=== PATIENT | male | born 1965 | race Caucasian/White ===

== ENCOUNTER 2017-01-24 18:07 | Day surgery (SDC) | payer MEDICARE, OTHER ==
[2017-01-24] MEDS ORDERED: IOPAMIDOL 370 (76%) 100 ML VIAL IV ONE (18:08)
[2017-01-24] MEDS ORDERED: SODIUM CHLORIDE 0.9% 1,000 ML ONE (22:38)
[2017-01-24 22:40] LABS: ABSOLUTE NEUTROPHIL COUNT 24.3 K/mm3 (1.8-7.7); BASO # 0.1 K/mm3 (0.0-0.2); BASO % 0.3 % (0.2-1.0); HEMATOCRIT 50.6 % (32.0-52.0); HEMOGLOBIN 16.7 gm/l (14.0-18.0); IMM NEUT # 0.2 K/mm3 (0-0.2); IMM NEUT% 0.9 % (0-1); LYMPH % 3.5 % (15-45); MEAN CELL VOLUME 90.7 fl (80.0-94.0); MEAN CORPUSCULAR HEMOGLOBIN 29.9 pg (27.0-31.0); MEAN PLATELET VOLUME 9.7 fl (7.4-10.4); MONO # 1.6 (0.0-0.8); MONO % 5.8 % (4-12); NEUT % 89.5 % (43-75); PLATELET COUNT 236 K/mm3 (130-400); RED CELL DISTRIBUTION WIDTH 13.5 % (11.5-14.5)
[2017-01-24 22:48] LABS: INR 1.09; PROTHROMBIN TIME 11.4 SECONDS (9.3-11.4)
[2017-01-24] MEDS ORDERED: PIPERACILLIN-TAZO PREMIX BAG 50 ML IV ONE (23:15)
[2017-01-24] MEDS ORDERED: KETAMINE HCL 50 MG/1 ML 10ML VIAL ONE (23:15)
[2017-01-24 23:29] LABS: ALB/GLOB RATIO 1.3 (>1.0); ALBUMIN 4.4 gm/dL (3.5-5.7); CALCIUM 10.9 mg/dL (8.6-10.3)
[2017-01-24 23:31] LABS: BAND 6 % (0-10); BASOPHIL 0 % (0-1); EOSINOPHIL 0 % (1-3); LYMPHOCYTE 4 % (15-45); MONOCYTE 5 % (4-12); NEUTROPHILS 85 % (43-75); PLATELET ESTIMATE NORMAL (NORMAL); TOTAL CELLS COUNTED 100
[2017-01-24 23:37] LABS: URINE APPEARANCE CLEAR; URINE BILIRUBIN NEGATIVE (NEGATIVE); URINE BLOOD NEGATIVE (NEGATIVE); URINE COLOR YELLOW; URINE GLUCOSE (UA) NEGATIVE (NEGATIVE); URINE LEUKOCYTE ESTERASE TRACE (NEGATIVE); URINE NITRITE NEGATIVE (NEGATIVE); URINE PROTEIN NEGATIVE (NEGATIVE); URINE UROBILINOGEN NORMAL (0-1 mg/dl)
[2017-01-24 23:47] LABS: URINE BACTERIA 0; URINE EPITHELIAL CELLS 0-2 /hpf; URINE RBC 0-2 /hpf
[2017-01-25] MEDS ORDERED: FENTANYL 250 MCG/5 ML AMP ONE (01:05)
[2017-01-25] MEDS ORDERED: MIDAZOLAM HCL 1 MG/ML 2ML VIAL ONE (01:05)
[2017-01-25] MEDS ORDERED: BUPIVACAINE 0.5% (PRES FREE) 30 ML VIAL ONE (01:11)
[2017-01-25] MEDS ORDERED: LIDOCAINE 1%/EPI 1:100,000 (MULTI DOSE) 30 ML VIAL ONE (01:11)
[2017-01-25] MEDS ORDERED: EPHEDRINE SULFATE 50 MG/ML 1ML VIAL ONE (01:41)
[2017-01-25] MEDS ORDERED: SUCCINYLCHOLINE CHL 20 MG/ML DOSE ONE (01:42)
[2017-01-25] MEDS ORDERED: PROPOFOL 20 ML IV ONE (01:42)
[2017-01-25] MEDS ORDERED: ROCURONIUM BROMIDE 10 MG/ML DOSE IV ONE (01:42)
[2017-01-25] MEDS ORDERED: LIDOCAINE 2% (MULTI DOSE) 10 ML VIAL ONE (01:42)
[2017-01-25] MEDS ORDERED: ONDANSETRON 4 MG/2ML 2 ML VIAL ONE (01:58)
[2017-01-25] MEDS ORDERED: LACTATED RINGERS 1,000 ML IV SCH (02:00)
[2017-01-25] MEDS ORDERED: FENTANYL 100 MCG/2 ML VIAL IV PRN (02:00)
[2017-01-25] MEDS ORDERED: ONDANSETRON 4 MG/2ML 2 ML VIAL IV PRN ×2 (02:00→02:55)
[2017-01-25] MEDS ORDERED: MEPERIDINE 25 MG/ML SYRINGE IV PRN (02:00)
[2017-01-25] MEDS ORDERED: ATROPINE SULFATE 0.4 MG/1 ML VIAL IV PRN (02:00)
[2017-01-25] MEDS ORDERED: HYDROMORPHONE HCL 1 MG/ML SYRINGE IV PRN ×2 (02:00→02:55)
[2017-01-25] MEDS ORDERED: NALOXONE HCL 0.4 MG/ML VIAL IV PRN (02:00)
[2017-01-25] MEDS ORDERED: NEOSTIGMINE METHYLSULFATE 1 MG/ML DOSE ONE (02:05)
[2017-01-25] MEDS ORDERED: GLYCOPYRROLATE 0.2 MG/ML 1ML VIAL ONE (02:05)
[2017-01-25] MEDS ORDERED: EtCO2 Monitoring Set ONE (02:14)
[2017-01-25] MEDS ORDERED: HYDROMORPHONE HCL 2 MG/ML SYRINGE ONE (02:25)
--- NOTE | 2017-01-25 02:50 | PCMON ---
Date of Procedure: 01/25/17 Start Time: 2:00 am PREOPERATIVE DIAGNOSIS Acute appendicitis. POSTOPERATIVE DIAGNOSIS Acute appendicitis with perforation. PROCEDURE PERFORMED Laparoscopic appendectomy. COMPLICATIONS None. OPERATIVE FINDINGS Acute appendicitis with localized perforation and villa-appendiceal fluid ESTIMATED BLOOD LOSS 30 ml BRIEF INDICATIONS AARON PALOMARES is a 51 year old M patient that was admitted with symptoms of acute appendicitis. The preoperative CBC revealed a elevated WBC, physical examination demonstrated RLQ abdominal tenderness, and CT scan supported the diagnosis of acute appendicitis. Risks and benefits of surgery were explained to the patient, including the risk of bowel resection, stoma creation and the possible need for conversion to open technique. The patient declined the possible alternatives and agreed to proceed with surgery, providing informed consent. DESCRIPTION OF PROCEDURE The patient was brought to the operating room and placed supine on the operating room table. A surgical briefing was held to verify the correct patient and correct procedure. A general anesthetic was induced uneventfully, followed by the administration of a subcutaneous heparin injection and perioperative antibiotics. Pneumatic compression stockings were placed on the legs and powered on. A Love catheter was placed to closed gravity drainage. The abdomen was prepped and draped in a sterile fashion. A 5-mm direct optical view trocar was used to enter the left lower quadrant under direct vision of the abdominal wall layers. Once inside the abdominal cavity, a pneumoperitoneum was created. No injury to underlying structures occurred with placement of this trocar. Once inside the abdominal cavity, an additional 12-mm port was placed periumbilically in the midline. An additional 5-mm port was placed in the midline just above the pubis. All trocars were placed under direct visualization. There was no injury to underlying structures with placement of these trocars. The patient was placed in Trendelenburg position with the right side up. The appendix was visualized at the base of the cecum. The appendix was mobilized allowing identification of the mesoappendix and the base of the appendix. The cecum was not involved by the appendiceal inflammation. A window was created at the base between the appendix and the mesoappendix, and the appendix was then amputated at its base with a blue load Endo JAVIER stapler. The mesentery of the appendix was then divided with a vascular load of the Endo JAVIER stapler. The appendix was then removed through the 12-mm midline port using an Endocatch bag. The staple lines were evaluated for hemostasis; no hemorrhage was identified. The RLQ was irrigated with warm saline. The left lower quadrant and suprapubic ports were removed under direct laparoscopic vision, and the incisions were hemostatic. The pneumoperitoneum was then evacuated. The fascia of the 12-mm port was closed with 0 Vicryl. All of the ports and instruments were removed. The skin was closed with 4-0 absorbable subcuticular sutures. Steri-Strips were placed over the incisions and sterile dressings applied. The needle and sponge counts were correct x2 at the completion of the procedure. The patient had no apparent intraoperative complication identified.
[2017-01-25] MEDS ORDERED: D5 1/2NS with 20 mEq KCL 1,000 ML IV SCH (02:55)
[2017-01-25] MEDS ORDERED: ACETAMINOPHEN 325 MG TABLET PO PRN (02:55)
[2017-01-25] MEDS ORDERED: PIPERACILLIN-TAZO PREMIX BAG 3.375 G in Premix (D5W) 50 ml 1 EACH IV SCH (02:55)
[2017-01-25] MEDS ORDERED: BLISTEX LIPSTICK 1 EACH TP PRN (02:55)
[2017-01-25] MEDS ORDERED: SODIUM CHLORIDE 0.9% 1,000 ML IV ONE (02:55)
[2017-01-25] MEDS ORDERED: Heparin Sodium 5000 unit/0.5ml syringe SUB-Q SCH (02:55)
[2017-01-25] MEDS ORDERED: MENTHOL/CETYLPYRD 1 EACH LOZENGE PO PRN (02:55)
[2017-01-25] MEDS ORDERED: PUMP TUBING ONE (03:05)
[2017-01-25 03:46] VITALS: BMI 18.2
[2017-01-25] MEDS: D5 1/2NS with 20 mEq KCL 1,000 ML IV SCH ×2 (04:09→15:12)
[2017-01-25] MEDS ORDERED: PIPERACILLIN-TAZO PREMIX BAG 50 ML IV ONE (05:09)
[2017-01-25] MEDS: PIPERACILLIN-TAZO PREMIX BAG 3.375 G in Premix (D5W) 50 ml 1 EACH IV SCH ×4 (05:27→23:42)
[2017-01-25] MEDS: LITHIUM CARBONATE 300 MG CAPSULE PO SCH ×2 (08:17→20:07)
[2017-01-25] MEDS: GEMFIBROZIL 600 MG TABLET PO SCH ×2 (08:17→16:38)
[2017-01-25] MEDS: SERTRALINE HCL 50 MG TABLET PO SCH (08:17)
[2017-01-25] MEDS: FAMOTIDINE 10 MG/ML 2ML VIAL IV SCH ×2 (08:18→20:08)
[2017-01-25] MEDS: Heparin Sodium 5000 unit/0.5ml syringe SUB-Q SCH ×2 (08:18→16:42)
--- NOTE | 2017-01-25 08:21 | CT ---
EXAMINATION: Contrast enhanced CT scans of the chest, abdomen and pelvis. CLINICAL INDICATION: Nausea and vomiting last 24 hours. COMPARISON: None TECHNIQUE: Oral contrast: None Following uneventful administration of 100 mL of Isovue 370, intravenously axial images were acquired from just above lung apices to the lung bases. A CT scan of the abdomen was acquired from the domes of the diaphragm to the iliac crest. A CT scan of the pelvis was also obtained from the iliac crest to the initial tuberosities. Stacked axial, sagittal, and coronal images were reviewed. Findings: Chest CT:(Contrast-enhanced) Several images are degraded due to motion artifact. This can diminish resolution. There is a stellate 1 cm groundglass lesion within the lateral aspect of the right upper lobe. This closely of biceps some pleural scarring. There is basilar atelectasis as well. A stellate soft tissue density is noted within the right cardiophrenic sulcus also approximately 1 cm in size. There is an apparent 4 mm nodule in the left lower lobe and the basilar segment please note motion artifact degrades many images. If warranted a repeat chest CT scan may need to be considered. There is no pleural effusion. No pleural plaques or significant irregularities are identified. The thoracic inlet is within normal limits. There is no mediastinal adenopathy. The heart size is normal. There is no pericardial effusion. There are mild atherosclerotic changes of the thoracic aorta. There is no aneurysmal dilatation or evidence of dissection. The pulmonary arteries are well opacified the proximal aspect. There is moderate lower thoracic dextroscoliosis. Multilevel spondylosis changes are also noted. No gross osteolytic or blastic lesions are identified. The esophagus is markedly thickened. This may reflect chronic esophagitis changes. Abdomen CT: (Contrast-enhanced): The liver is unremarkable. The gallbladder is moderately distended. There is no adjacent inflammatory stranding. Common bile duct is not dilated. There is borderline splenomegaly. It approximates 13 cm in long axis dimension. There is a low-attenuation lesion in the posterior superior aspect which may reflect a hemangioma. It measures approximate 1.3 cm in size. In the anterior inferior aspect there is also a low-attenuation lesion also suspicious for hemangioma or cyst approximates 7 mm in size. The pancreas is normal in size and contours. No inflammatory stranding is identified. The pancreatic duct is unremarkable. The adrenals are unremarkable. The kidneys are without solid mass or hydronephrosis. There is no gross nephrolithiasis. There is an 8 mm upper pole left renal cyst. Smaller cortical cysts are suggested as well. There is after chronic plaquing of the abdominal aorta with no aneurysm or dissection. There is no adjacent lymphadenopathy. In the upper abdomen the stomach and small bowels within normal limits. No large bowel abnormalities are seen. There is no free air. Scoliosis is noted. No gross osteolytic or blastic changes are identified. Pelvic CT: (Contrast -enhanced): The distal ureters and bladder are unremarkable. The prostate is normal in size. No adenopathy is identified. The distal abdominal aorta and iliac vessels are within normal limits. The visualized segments of small and large bowel are within normal limits. The appendix is markedly distended and exhibits inflammatory changes. There is an appendicolith at the base. Pockets of gas are noted centrally within the appendiceal lumen and there is peripheral enhancement. Transverse dimension approximates 1.4 cm. Currently at the time of this examination there is no evidence of perforation or abscess. Scoliosis is noted. The overlying soft tissues are unremarkable. IMPRESSION: 1. Appendicitis. The appendix is markedly distended and inflamed. Currently there is no evidence of perforation or abscess. 2. Stellate 1 cm lesion within the right upper lobe with adjacent scarring. There is also a 1 cm lesion within the right cardiophrenic sulcus may reflect scarring as well. Please note due to motion artifact does limit resolution. A repeat CT scan may be warranted in this instance. 3. Moderate esophageal mucosal thickening. Findings raise a question of esophagitis. Endoscopy may be warranted. 4. Borderline splenomegaly. There are lesions within the spleen as described above. Currently these do not appear aggressive. 5. Moderate distention of the gallbladder with no adjacent inflammatory change. 6. Atherosclerosis. 7. Renal cysts. 8. Scoliosis. Findings were communicated by [facility] to the emergency department at: 12:05 AM 01/25/2017
--- NOTE | 2017-01-25 09:24 | HP ---
AARON JEAN-BAPTISTE DATE OF ADMISSION: January 25, 2017 HISTORY OF PRESENT ILLNESS: Mr. Jean-Baptiste is a 51-year-old male with a significant past medical history for neurological disease, developmental delay. Other past medical history includes hyperlipidemia, autism, cerebral palsy, pulmonary disease and chronic bronchitis. Mr. Jean-Baptiste presents this evening with his caregiver to [facility]. Unfortunately, the caregiver accompanying Mr. Jean-Baptiste today was not his regular it support consultant and had minimal past medical history for our initial discussion. With some difficulty, I was able to obtain a history which sounds like over the last 24 hours, Mr. Jean-Baptiste had increasing right lower quadrant abdominal pain although this was difficult to confirm. He had recently received ketamine prior to proceeding to the CT scanner, so even physical exam was difficult at this time. PHYSICAL EXAMINATION: On physical examination, Mr. Jean-Baptiste is his stated age. He appears to be autistic with developmental delay. He is sedated at this point. His abdomen is soft. He does appear to have a fullness in the right lower quadrant as well as abdominal tenderness to deep palpations. His lungs are clear bilaterally with normal heart sounds. LABS: On laboratory evaluation, he has a white count of 27.2 with a significant left shift. Remaining coagulation and chemistries are within relatively normal range. DIAGNOSTIC IMAGING: The CAT scan reveals a tubular structure in the right lower quadrant extending to the mid abdomen. It appears to have a fecalith with thickened appendiceal wall as well as densely inflamed small bowel in the region around the appendix. I questioned whether or not Mr. Jean-Baptiste had a perforated appendix on his imaging, and I am suspicious that his abdominal pain has been ongoing for longer than 24 hours. ASSESSMENT AND PLAN: Based on the findings of right lower quadrant abdominal pain, the elevation of white count, and the CT scan concerning for acute possibly perforated appendicitis, I recommended laparoscopic appendectomy. Due to Mr. Jean-Baptiste's standard medical state and his inability to give consent, I discussed this with the caregiver. The caregiver understood the risks and benefits of the surgery and discussed this with her supervising AI. Due to the fact that this was an emergency procedure, Dr. Mejia from the emergency department and myself performed a two physician consent for proceeding to the operating room for laparoscopic appendectomy.
[2017-01-25] MEDS: HYDROMORPHONE HCL 0.5 MG/0.5 ML SYRINGE IV PRN (12:14)
[2017-01-25] MEDS: LOVASTATIN 20 MG TABLET PO SCH (20:07)
[2017-01-25] MEDS: OLANZAPINE 5 MG TABLET PO SCH (20:08)
[2017-01-26] MEDS: Heparin Sodium 5000 unit/0.5ml syringe SUB-Q SCH ×3 (01:33→16:58)
[2017-01-26] MEDS: D5 1/2NS with 20 mEq KCL 1,000 ML IV SCH ×3 (02:00→20:30)
[2017-01-26] MEDS: HYDROMORPHONE HCL 0.5 MG/0.5 ML SYRINGE IV PRN (02:00)
[2017-01-26] MEDS: PIPERACILLIN-TAZO PREMIX BAG 3.375 G in Premix (D5W) 50 ml 1 EACH IV SCH (06:06)
[2017-01-26 06:18] LABS: ABSOLUTE NEUTROPHIL COUNT 10.8 K/mm3 (1.8-7.7); BASO # 0.1 K/mm3 (0.0-0.2); BASO % 0.4 % (0.2-1.0); EOS % 0.3 % (0.9-2.9); HEMATOCRIT 37.9 % (32.0-52.0); IMM NEUT # 0.1 K/mm3 (0-0.2); IMM NEUT% 0.4 % (0-1); LYMPH % 7.8 % (15-45); MEAN CELL VOLUME 93.3 fl (80.0-94.0); MEAN CORPUSCULAR HEMOGLOBIN 29.6 pg (27.0-31.0); MEAN CORPUSCULAR HGB CONC 31.7 g/dl (33.0-37.0); MEAN PLATELET VOLUME 9.5 fl (7.4-10.4); MONO # 0.8 (0.0-0.8); MONO % 6.4 % (4-12); NEUT % 84.7 % (43-75); PLATELET COUNT 172 K/mm3 (130-400); RED CELL DISTRIBUTION WIDTH 13.4 % (11.5-14.5)
[2017-01-26 06:24] LABS: ALB/GLOB RATIO 1.1 (>1.0); ALBUMIN 3.1 gm/dL (3.5-5.7); CALCIUM 8.6 mg/dL (8.6-10.3)
[2017-01-26] MEDS: GEMFIBROZIL 600 MG TABLET PO SCH ×2 (07:36→16:58)
[2017-01-26] MEDS: LITHIUM CARBONATE 300 MG CAPSULE PO SCH ×2 (09:01→20:15)
[2017-01-26] MEDS: FAMOTIDINE 10 MG/ML 2ML VIAL IV SCH ×2 (09:01→20:15)
[2017-01-26] MEDS: SERTRALINE HCL 50 MG TABLET PO SCH (09:02)
[2017-01-26] MEDS: OXYCODONE HCL 5 MG TABLET PO PRN ×3 (09:14→20:34)
[2017-01-26] MEDS: OLANZAPINE 5 MG TABLET PO SCH (20:15)
[2017-01-26] MEDS: LOVASTATIN 20 MG TABLET PO SCH (20:15)
[2017-01-26] MEDS: AMOX 875 MG/CLAV 125 MG 1 EACH TABLET PO SCH (20:15)
[2017-01-26] MEDS: KETOROLAC TROMETHAMINE 30 MG/ML 1 ML VIAL IV PRN (20:30)
[2017-01-27] MEDS: Heparin Sodium 5000 unit/0.5ml syringe SUB-Q SCH ×2 (01:13→09:27)
[2017-01-27] MEDS: KETOROLAC TROMETHAMINE 30 MG/ML 1 ML VIAL IV PRN (02:22)
[2017-01-27 07:49] VITALS: BP 109/57
[2017-01-27] MEDS: D5 1/2NS with 20 mEq KCL 1,000 ML IV SCH (07:54)
[2017-01-27] MEDS: GEMFIBROZIL 600 MG TABLET PO SCH (07:54)
[2017-01-27] MEDS: FAMOTIDINE 10 MG/ML 2ML VIAL IV SCH (09:27)
[2017-01-27] MEDS ORDERED: OPIUM/BELLADONNA ALKALOIDS 1 EACH SUP PR ONE (09:33)
[2017-01-27] MEDS: AMOX 875 MG/CLAV 125 MG 1 EACH TABLET PO SCH (09:36)
[2017-01-27] MEDS: SERTRALINE HCL 50 MG TABLET PO SCH (09:36)
[2017-01-27] MEDS: LITHIUM CARBONATE 300 MG CAPSULE PO SCH (09:36)
[2017-01-27] MEDS ORDERED: BISACODYL 10 MG SUP PR ONE (10:26)
[2017-01-27 10:37] LABS: ABSOLUTE NEUTROPHIL COUNT 6.9 K/mm3 (1.8-7.7); BASO % 0.5 % (0.2-1.0); EOS # 0.2 (0.0-0.5); EOS % 2.2 % (0.9-2.9); HEMATOCRIT 41.8 % (32.0-52.0); HEMOGLOBIN 13.5 gm/l (14.0-18.0); IMM NEUT% 0.4 % (0-1); LYMPH # 0.6 (1.0-4.8); LYMPH % 7.3 % (15-45); MEAN CELL VOLUME 92.1 fl (80.0-94.0); MEAN CORPUSCULAR HEMOGLOBIN 29.7 pg (27.0-31.0); MEAN CORPUSCULAR HGB CONC 32.3 g/dl (33.0-37.0); MEAN PLATELET VOLUME 9.3 fl (7.4-10.4); MONO # 0.6 (0.0-0.8); MONO % 6.8 % (4-12); NEUT % 82.8 % (43-75); PLATELET COUNT 188 K/mm3 (130-400); RED CELL DISTRIBUTION WIDTH 13.2 % (11.5-14.5)
--- NOTE | 2017-01-27 12:03 | SURGPATH ---
[facility] [address] [place] [id number] Patient Name: AARON PALOMRAES MR#: [id number] : 1965 Gender: M Specimen #: [id number] Collected: 01/25/2017 Received: 01/26/2017 Reported: 01/27/2017 Submitting Phys: MIGUEL ANGEL MANDEL Copy To Phys: BJ PENDLETON [facility] Clinical History / Pre-Operative Diagnosis: Acute appendicitis Specimen Source / Surgical Procedure Performed: Appendix Interpretation: APPENDIX, APPENDECTOMY: - ACUTE APPENDICITIS Electronically Signed Out Dottie Dale M.D. Gross Description: The specimen is received in formalin labeled with the patient's name and "appendix". The specimen consists of an 8.0 x 1.2 x 1.2 cm vermiform appendix with attached mesoappendix. The serosa is dusky and dull with exudate. The mucosa is hemorrhagic or necrotic. A distinct perforation or obstruction is difficult to identify. 1A kiosk sales representative, base and tip RASHAUN Padilla Microscopic Description: Sections show an ulcerated appendix with transmural acute inflammation. 1: [id number] K35.80
[2017-01-27] MEDS: OXYCODONE HCL 5 MG TABLET PO PRN (12:37)
== END 2017-01-27 12:42 | disposition home or self-care (01) ==
LOC: ED 18:07 → SDC 01-25 00:05 → MS 01-25 04:55 → SDC 01-27 12:42
PROVIDERS: ATTEND Surgery
PROC: 0DTJ4ZZ Resection of Appendix, Percutaneous Endoscopic Approach (ICD-10-PCS; principal; 2017-01-24)
DX: K35.3 Acute appendicitis with localized peritonitis (principal); E78.5 Hyperlipidemia, unspecified; G80.9 Cerebral palsy, unspecified; J42 Unspecified chronic bronchitis; F84.0 Autistic disorder
CPT/HCPCS: 44970; 83605; 83690; 85025 ×3; 87040; 80053 ×2; 80178; 83735; 85610; 81001; 36415; 74177; 71260; 96375; 99285 ×2; 96361 ×3; 96365 ×2; 96366; A9270 ×17; J1170 ×4; J3010; J1644 ×8; J1885 ×2; J2250; J2001 ×2; J2405; J2543 ×3; J7030 ×4; Q9967